=== PATIENT | female | born 1990 | race Caucasian/White ===

== ENCOUNTER 2019-05-08 12:22 | Emergency (ER) | payer OTHER ==
[~2019-05-08] VITALS: Ht 162.6 cm; Wt 56.7 kg
[~2019-05-08 12:22] MED LIST: ACETAMINOPHEN325 M1 PO; APAP500 PO; DERMOPLAST SPRA56 ML; IBUPROFEN 400400 M1 PO; PRENATAL PO; TUCKS MEDICATE1 EAC1; TUMS PO
[2019-05-08 15:19] VITALS: BP 127/67
== END 2019-05-08 15:19 | disposition home or self-care (01) ==
LOC: M.ERS 12:22
DX: S82.425A Nondisplaced transverse fracture of shaft of left fibula, initial encounter for closed fracture (principal); W18.39XA Other fall on same level, initial encounter; Y93.89 Activity, other specified; Y92.89 Other specified places as the place of occurrence of the external cause; Y99.8 Other external cause status